=== PATIENT | female | born 1930 | race Two or more races ===

== ENCOUNTER 2017-12-14 15:22 | Emergency (ER) | payer OTHER ==
[~2017-12-14] VITALS: Ht 157.5 cm; Wt 68.0 kg
== END 2017-12-14 18:11 | disposition home or self-care (01) ==
LOC: ER 15:22
DX: S00.03XA Contusion of scalp, initial encounter (principal); W01.198A Fall on same level from slipping, tripping and stumbling with subsequent striking against other object, initial encounter; Y93.89 Activity, other specified; Y92.018 Other place in single-family (private) house as the place of occurrence of the external cause; Y99.8 Other external cause status